=== PATIENT | male | born 1965 | race Caucasian/White ===

== ENCOUNTER 2018-03-02 08:05 | Emergency (ER) | payer BC ==
[2018-03-02 08:15] VITALS: RESP 20
[2018-03-02] MEDS ORDERED: SODIUM CHLORIDE 0.9% 1,000 ML IV STA (08:23)
[2018-03-02] MEDS ORDERED: ONDANSETRON 4 MG/2 ML VIAL IVP STA (08:23)
[2018-03-02] MEDS ORDERED: KETOROLAC 30 MG/ML 1 ML VIAL IVP STA (08:23)
--- NOTE | 2018-03-02 08:28 | ED ---
Abdominal Pain HPI - General Chief Complaint: Abdominal Pain Stated Complaint: FLANK PAIN LEFT SIDE Time Seen by Provider: 03/02/18 08:16 Source: patient, RN notes reviewed Mode of arrival: ambulatory Limitations: no limitations - History of Present Illness Initial Comments: This a 52-year-old male presents emergency Department chief complaint abdominal pain, flank pain. Patient states the pain started a couple days ago initially felt that he may be constipated but states that he's had normal bowel movements no relief of symptoms. Patient states he cannot get comfortable states pain is suprapubic, groin region and all way to his left flank. He has no history kidney stones. Patient states he started vomiting today and has current nausea. Patient denies any dysuria no hematuria. He has had prior hernia repair inguinal in umbilical. Patient reports no fever no chills no chest pain or shortness of breath. He states he feels bloated, distended at this time. - Related Data Home Medications Medication Instructions Recorded Confirmed Ketorolac [Toradol] 10 mg PO Q6HR 03/02/18 03/02/18 Propranolol HCl [Propranolol HCl 120 mg PO BID 03/02/18 03/02/18 ER] SUMAtriptan SUCCINATE [Imitrex] 100 mg PO BID PRN 03/02/18 03/02/18 glipiZIDE [Glucotrol] 5 mg PO BID 03/02/18 03/02/18 sitaGLIPtin [Januvia] 100 mg PO DAILY 03/02/18 03/02/18 Previous Rx's Medication Instructions Recorded Hydrocodone/Acetaminophen [Campbell 1 tab PO Q6HR PRN #12 tab 03/02/18 5-325] Ondansetron Odt [Zofran Odt] 4 mg PO Q8HR PRN #10 tab 03/02/18 Tamsulosin [Flomax] 0.4 mg PO DAILY #7 cap 03/02/18 Allergies Allergy/AdvReac Type Severity Reaction Status Date / Time Penicillins Allergy Dyspnea Verified 03/02/18 08:15 Review of Systems ROS Statement: Those systems with pertinent positive or pertinent negative responses have been documented in the HPI. ROS Other: All systems not noted in ROS Statement are negative. Past Medical History Past Medical History: Diabetes Mellitus, Hyperlipidemia, Hypertension History of Any Multi-Drug Resistant Organisms: None Reported Past Surgical History: Appendectomy Additional Past Surgical History / Comment(s): hernia repair Past Psychological History: Anxiety, Depression Smoking Status: Former smoker Past Alcohol Use History: None Reported Past Drug Use History: None Reported General Exam Limitations: no limitations General appearance: alert, in no apparent distress Head exam: Present: atraumatic, normocephalic, normal inspection Neck exam: Present: normal inspection, full ROM. Absent: tenderness, meningismus, lymphadenopathy Respiratory exam: Present: normal lung sounds bilaterally. Absent: respiratory distress, wheezes, rales, rhonchi, stridor Cardiovascular Exam: Present: regular rate, normal rhythm, normal heart sounds. Absent: systolic murmur, diastolic murmur, rubs, gallop, clicks GI/Abdominal exam: Present: soft, tenderness (Moderate left-sided, suprapubic tenderness), normal bowel sounds. Absent: distended, guarding, rebound, rigid Back exam: Present: CVA tenderness (L) (Mild). Absent: CVA tenderness (R) Neurological exam: Present: alert, oriented X3, CN II-XII intact Skin exam: Present: warm, dry, intact, normal color. Absent: rash Course Vital Signs 03/02/18 08:11 Temperature 98.4 F Pulse Rate 62 Respiratory 20 Rate Blood Pressure 158/88 O2 Sat by Pulse 99 Oximetry Medical Decision Making - Medical Decision Making 52-year-old male presented for left flank pain. Patient's found to have 3.9 mm UVJ stone. Patient does have mild hydronephrosis hydroureter. Patient will be given Flomax, Campbell and Zofran to be discharged with. I did advise him that he has an elevation of his kidney function that he needs to stop his Toradol at home he should increases fluid intake and follow-up with urology. Patient also advised that he had some thickening on the rectosigmoid junction. Patient is advised that needs follow-up for colonoscopy. - Lab Data Result diagrams: 03/02/18 08:38 03/02/18 08:38 Lab Results 03/02/18 03/02/18 03/02/18 Range/Units 08:38 08:38 08:38 WBC 13.3 H (3.8-10.6) k/uL RBC 4.72 (4.30-5.90) m/uL Hgb 13.6 (13.0-17.5) gm/dL Hct 40.3 (39.0-53.0) % MCV 85.4 (80.0-100.0) fL MCH 28.8 (25.0-35.0) pg MCHC 33.8 (31.0-37.0) g/dL RDW 13.2 (11.5-15.5) % Plt Count 345 (150-450) k/uL Neutrophils % 79 % Lymphocytes % 14 % Monocytes % 5 % Eosinophils % 1 % Basophils % 0 % Neutrophils # 10.5 H (1.3-7.7) k/uL Lymphocytes # 1.8 (1.0-4.8) k/uL Monocytes # 0.7 (0-1.0) k/uL Eosinophils # 0.1 (0-0.7) k/uL Basophils # 0.1 (0-0.2) k/uL PT (9.0-12.0) sec INR (<1.2) APTT (22.0-30.0) sec Sodium 142 (137-145) mmol/L Potassium 5.4 H (3.5-5.1) mmol/L Chloride 103 (98-107) mmol/L Carbon Dioxide 24 (22-30) mmol/L Anion Gap 15 mmol/L BUN 25 H (9-20) mg/dL Creatinine 1.59 H (0.66-1.25) mg/dL Est GFR (CKD-EPI)AfAm 57 (>60 ml/min/1.73 sqM) Est GFR (CKD-EPI)NonAf 49 (>60 ml/min/1.73 sqM) Glucose 247 H (74-99) mg/dL Plasma Lactic Acid Delmar 0.9 (0.7-2.0) mmol/L Calcium 10.1 (8.4-10.2) mg/dL Total Bilirubin 0.3 (0.2-1.3) mg/dL AST 19 (17-59) U/L ALT 37 (21-72) U/L Alkaline Phosphatase 75 (38-126) U/L Total Protein 7.3 (6.3-8.2) g/dL Albumin 4.5 (3.5-5.0) g/dL Amylase 52 (30-110) U/L Lipase 68 (23-300) U/L Urine Color Urine Appearance (Clear) Urine pH (5.0-8.0) Ur Specific [place] (1.001-1.035) Urine Protein (Negative) Urine Glucose (UA) (Negative) Urine Ketones (Negative) Urine Blood (Negative) Urine Nitrite (Negative) Urine Bilirubin (Negative) Urine Urobilinogen (<2.0) mg/dL Ur Leukocyte Esterase (Negative) Urine RBC (0-5) /hpf Urine WBC (0-5) /hpf Ur Squamous Epith Cells (0-4) /hpf Urine Mucus (None) /hpf 03/02/18 03/02/18 Range/Units 08:38 08:38 WBC (3.8-10.6) k/uL RBC (4.30-5.90) m/uL Hgb (13.0-17.5) gm/dL Hct (39.0-53.0) % MCV (80.0-100.0) fL MCH (25.0-35.0) pg MCHC (31.0-37.0) g/dL RDW (11.5-15.5) % Plt Count (150-450) k/uL Neutrophils % % Lymphocytes % % Monocytes % % Eosinophils % % Basophils % % Neutrophils # (1.3-7.7) k/uL Lymphocytes # (1.0-4.8) k/uL Monocytes # (0-1.0) k/uL Eosinophils # (0-0.7) k/uL Basophils # (0-0.2) k/uL PT 10.0 (9.0-12.0) sec INR 1.0 (<1.2) APTT 25.1 (22.0-30.0) sec Sodium (137-145) mmol/L Potassium (3.5-5.1) mmol/L Chloride (98-107) mmol/L Carbon Dioxide (22-30) mmol/L Anion Gap mmol/L BUN (9-20) mg/dL Creatinine (0.66-1.25) mg/dL Est GFR (CKD-EPI)AfAm (>60 ml/min/1.73 sqM) Est GFR (CKD-EPI)NonAf (>60 ml/min/1.73 sqM) Glucose (74-99) mg/dL Plasma Lactic Acid [place] (0.7-2.0) mmol/L Calcium (8.4-10.2) mg/dL Total Bilirubin (0.2-1.3) mg/dL AST (17-59) U/L ALT (21-72) U/L Alkaline Phosphatase (38-126) U/L Total Protein (6.3-8.2) g/dL Albumin (3.5-5.0) g/dL Amylase (30-110) U/L Lipase (23-300) U/L Urine Color Yellow Urine Appearance Clear (Clear) Urine pH 5.5 (5.0-8.0) Ur Specific [place] 1.018 (1.001-1.035) Urine Protein Negative (Negative) Urine Glucose (UA) Trace H (Negative) Urine Ketones Negative (Negative) Urine Blood Small H (Negative) Urine Nitrite Negative (Negative) Urine Bilirubin Negative (Negative) Urine Urobilinogen <2.0 (<2.0) mg/dL Ur Leukocyte Esterase Negative (Negative) Urine RBC 12 H (0-5) /hpf Urine WBC <1 (0-5) /hpf Ur Squamous Epith Cells <1 (0-4) /hpf Urine Mucus Rare H (None) /hpf Disposition Clinical Impression: Ureteral calculi, Acute kidney injury, Colonic thickening Disposition: HOME SELF-CARE Condition: Stable Instructions: Kidney Stones (ED) Additional Instructions: Please follow up with your PCP to referred for colonoscopy.Please return to the Emergency Department if symptoms worsen or any other concerns. Prescriptions: Hydrocodone/Acetaminophen [Campbell 5-325] 1 tab PO Q6HR PRN #12 tab PRN Reason: Pain Ondansetron Odt [Zofran Odt] 4 mg PO Q8HR PRN #10 tab PRN Reason: Nausea Tamsulosin [Flomax] 0.4 mg PO DAILY #7 cap Is patient prescribed a controlled substance at d/c from ED?: Yes When asked, does pt state using other controlled substances?: No If prescribed controlled substance>3 days was MAPS reviewed?: Prescribed <3 Days If opioid is for acute pain is fill amount 7 days or less?: Yes If Rx opioid, was Start Talking consent form obtained?: Yes Referrals: Tuyet Patten MD [Primary Care Provider] - 1-2 days Wander Gillespie MD [STAFF PHYSICIAN] - 1-2 days Time of Disposition: 10:05
[2018-03-02] MEDS ORDERED: MORPHINE SULFATE 2 MG/ML SYRINGE IVP STA (08:40)
[2018-03-02 08:52] LABS: Basophils # (A) 0.1 k/uL (0-0.2); Basophils % (A) 0 %; Eosinophils # (A) 0.1 k/uL (0-0.7); Eosinophils % (A) 1 %; HCT 40.3 % (39.0-53.0); HGB 13.6 gm/dL (13.0-17.5); Lymphocytes # (A) 1.8 k/uL (1.0-4.8); Lymphocytes % (A) 14 %; MCH 28.8 pg (25.0-35.0); MCHC 33.8 g/dL (31.0-37.0); MCV 85.4 fL (80.0-100.0); Mean Platelet Volume 6.3; Monocytes # (A) 0.7 k/uL (0-1.0); Monocytes % (A) 5 %; Neutrophils # (A) 10.5 k/uL (1.3-7.7); Neutrophils % (A) 79 %; Platelet Count 345 k/uL (150-450); RBC 4.72 m/uL (4.30-5.90); RDW 13.2 % (11.5-15.5); WBC 13.3 k/uL (3.8-10.6)
[2018-03-02 08:56] LABS: Appearance,Urine Clear (Clear); Bilirubin,Urine Negative (Negative); Blood,Urine Small (Negative); Color,Urine Yellow; Glucose,Urine (UA) Trace (Negative); Ketones,Urine Negative (Negative); Leukocyte Esterase,Urine Negative (Negative); Mucus,Urine Rare /hpf; Nitrite,Urine Negative (Negative); PH, Urine 5.5 (5.0-8.0); Protein,Urine Negative (Negative); RBC,Urine 12 /hpf (0-5); Specific Gravity,Urine 1.018 (1.001-1.035); Squamous Epithelial Cell,Urine <1 /hpf (0-4); Urobilinogen,Urine <2.0 mg/dL (<2.0); WBC,Urine <1 /hpf (0-5)
--- NOTE | 2018-03-02 08:59 | XR ---
EXAMINATION TYPE: XR KUB , 2 VIEWS DATE OF EXAM ORDERED: 03/02/2018 HISTORY: abdominal pain. COMPARISON: None. FINDINGS: There is a rounded opacity at the left lung base.. Within the abdomen, the abdominal gas pattern is within normal limits. There is no evidence of obstru ction or free air. No unusual calcifications are seen. IMPRESSION: 1. ROUNDED OPACITY AT THE LEFT LUNG BASE. A PA AND LATERAL CHEST WOULD BE SUGGESTED. 2. NO ACUTE INTRA-ABDOMINAL ABNORMALITY.
[2018-03-02 09:00] LABS: Partial Thromboplastin Time 25.1 sec (22.0-30.0)
[2018-03-02 09:04] LABS: Albumin 4.5 g/dL (3.5-5.0); Calcium 10.1 mg/dL (8.4-10.2); Potassium 5.4 mmol/L (3.5-5.1); Total Bilirubin 0.3 mg/dL (0.2-1.3); Total Protein 7.3 g/dL (6.3-8.2)
[2018-03-02] MEDS ORDERED: SODIUM CHLORIDE 0.9% 1,000 ML IV ONE (09:26)
--- NOTE | 2018-03-02 09:55 | CT ---
EXAMINATION TYPE: CT abdomen pelvis wo con DATE OF EXAM: 03/02/2018 COMPARISON: Previous study dated 08/01/2012. HISTORY: Left sided pain with hematuria CT DLP: 1158 mGycm Automated exposure control for dose reduction was used. FINDINGS: There is minimal dependent atelectasis within the lung bases. There is no pleural or perica rdial fluid. The heart is upper limits of normal in size. There is a small hiatal hernia. A small, 1 cm cyst in the caudate lobe of the liver is again identified. This is unchanged from previ ous. The spleen and gallbladder appear normal. There is a small splenule adjacent to the spleen. Both adrenal glands appear normal. The right kidney is unremarkable without evidence of hydronephrosis or nephrolithiasis. There is hydr onephrosis on the left and there is stranding adjacent to the left kidney. There is a 3.9 mm calculus in the distal left ureter adjacent to the UVJ.. The pancreas is unremarkable. There is no significant retroperitoneal, iliac or inguinal adenopathy. The bladder wall is mildly thickened. This may be due to chronic bladder outlet obstruction. There is some focal thickening at the rectosigmoid junction. There is no significant diverticular woody nge and there is no radiographic evidence of diverticulitis. The appendix is not visualized with cert ainty. Small bowel loops are normal. There is no significant free fluid and there is no evidence of free air. There is a small, indirect inguinal hernia on the left containing fat only. There is degenerative disc disease and hypertrophic spondylosis within the thoracic and lumbar spines . IMPRESSION: 1. 3.9 MM DISTAL LEFT URETERIC CALCULUS AT THE LEVEL OF THE UVJ CAUSING MILD TO MODERATE HYDRONEPHROS IS ON THE LEFT. 2. SMALL HIATAL HERNIA. 3. CYSTIC CHANGE WITHIN THE LIVER, STABLE FROM PREVIOUS. 4. MILD BLADDER WALL THICKENING MAY REFLECT CHRONIC BLADDER OUTLET OBSTRUCTION. 5. MILD DEGENERATIVE CHANGE WITHIN THE SPINE. 6. FOCAL THICKENING OF THE RECTOSIGMOID JUNCTION. DIRECT VISUALIZATION WOULD BE SUGGESTED. 7. DEGENERATIVE CHANGES WITHIN THE SPINE.
[2018-03-02 10:23] VITALS: BP 138/82; PULSE 60; TEMP 98.2
== END 2018-03-02 10:23 | disposition home or self-care (01) ==
LOC: EC 08:05
DX: N17.9 Acute kidney failure, unspecified (principal); N13.2 Hydronephrosis with renal and ureteral calculous obstruction; K63.89 Other specified diseases of intestine; E11.9 Type 2 diabetes mellitus without complications; I10 Essential (primary) hypertension; Z90.49 Acquired absence of other specified parts of digestive tract; Z98.890 Other specified postprocedural states; Z87.891 Personal history of nicotine dependence; Z79.84 Long term (current) use of oral hypoglycemic drugs; Z79.899 Other long term (current) drug therapy; Z88.0 Allergy status to penicillin
CPT/HCPCS: 36415; 80053; 82150; 83605; 83690; 85025; 85610; 85730; 81001; 74018; 74176; 99284; 96374; 96375 ×2; 96361 ×2; J2405; J1885; J2270

== ENCOUNTER → 2018-04-11 | Day surgery (SDC) | payer BC ==
[~2018-04-11] MED LIST: LACTATED RINGERS 1,000 ML IV ONE; LACTATED RINGERS 1,000 ML IV SCH; LIDOCAINE 1% 20 ML VIAL (10MG/ML) FOR IV START INTRADERMA ONE; LIDOCAINE 1% 20 ML VIAL (10MG/ML) FOR IV START INTRADERMA PRN; LIDOCAINE 1% INJ 10MG/ML (20 ML MDV) ONE; PROPOFOL 10 MG/ML 20 ML VIAL IV ONE
[2018-04-11 12:38] VITALS: RESP 16; TEMP 97.5
[2018-04-11 12:45] LABS: Glucose,Whole Blood 170 mg/dL (75-99)
--- NOTE | 2018-04-11 14:06 | P.PCN ---
Date of Procedure: 04/11/18 Procedure(s) Performed: BRIEF HISTORY: Patient is a 52-year-old pleasant male, scheduled for an elective colonoscopy as a part of screening for colorectal neoplasia. PROCEDURE PERFORMED: Colonoscopy snare polypectomy. PREOPERATIVE DIAGNOSIS: Screening for colon cancer. IV sedation per Anesthesia. PROCEDURE: After informed consent was obtained, the patient, was brought into the endoscopy unit. IV sedation was administered by Anesthesia under continuous monitoring. Digital rectal examination was normal. Initially the Olympus CF- 160 flexible video colonoscope was then inserted in the rectum, gradually advanced into the cecum without any difficulty. Careful examination was performed as the scope was gradually being withdrawn. Ileocecal valve and the appendiceal orifice were visualized and appeared normal. Prep was excellent. Mucosa of the cecum, ascending colon, transverse colon, descending colon, sigmoid colon, and rectum appeared normal. In the distal sigmoid colon there was a 5-6 mm sessile polyp removed by snare polypectomy. Retroflexion was performed in the rectum and no lesions were seen. The patient tolerated the procedure well. IMPRESSION: I to 6 mm sessile distal sigmoid colon polyp status post polypectomy Rest of the colon appeared normal RECOMMENDATIONS: Findings of this examination were discussed with the patient as well as his family. He was advised to follow with the biopsy results. If the biopsy shows an adenoma, he can have a repeat colonoscopy in 5 years..
[2018-04-11 14:30] VITALS: BP 158/99; PULSE 63
== END ==
LOC: ORWHC2ENDO 11:26
PROVIDERS: ATTEND Internal Medicine Gastroenterology
DX: Z12.11 Encounter for screening for malignant neoplasm of colon (principal); K63.5 Polyp of colon; I10 Essential (primary) hypertension; E78.5 Hyperlipidemia, unspecified; G43.909 Migraine, unspecified, not intractable, without status migrainosus; E11.9 Type 2 diabetes mellitus without complications; Z79.84 Long term (current) use of oral hypoglycemic drugs; Z79.891 Long term (current) use of opiate analgesic; Z79.899 Other long term (current) drug therapy; Z88.0 Allergy status to penicillin; Z87.891 Personal history of nicotine dependence
CPT/HCPCS: 88305; 45380; J2001; J2704

== ENCOUNTER → 2018-05-08 | Day surgery (SDC) | payer BC ==
[2018-05-02 15:36] VITALS: BMI 30.3
[~2018-05-08] MED LIST changes: +ATROPINE SULFATE 0.1 MG/ML 10ML SYRINGE ONE; +BUPIVACAIN-EPI 0.5%-1:200,000 30 ML VIAL SQ ONE; +CLINDAMYCIN 600 MG in DEXTROSE 5% IN WATER 50 ML IVPB ONE; +DEXAMETHASONE SOD PHOS (MDV) 100 MG/10 ML VIAL ONE; +DEXAMETHASONE SOD PHOSPHATE 10 MG/ML 1 ML VIAL IV ONE; +ENALAPRILAT 1.25 MG/ML 1 ML VIAL IVP ONE; +EPINEPHrine 1 MG/ML (MDV) 30 ML VIAL IRRIGATION ONE; +FAMOTIDINE 20 MG/2 ML VIAL IVP ONE; +FLUORESCEIN STRIPS 1 MG STRIP MISCELLANE ONE; +HYDROcodone/APAP 5-325MG 1 EACH TAB PO ONE; -LIDOCAINE 1% 20 ML VIAL (10MG/ML) FOR IV START INTRADERMA ONE; -LIDOCAINE 1% 20 ML VIAL (10MG/ML) FOR IV START INTRADERMA PRN; +LIDOCAINE 1%-EPI 1:100,000 20 ML VIAL SQ ONE; +MELOXICAM 7.5 MG TAB PO ONE; +MIDAZOLAM 2 MG/2 ML VIAL IV PRN; +MIDAZOLAM 2 MG/2 ML VIAL ONE; +ONDANSETRON 4 MG/2 ML VIAL IVP ONE; +OXYMETAZOLINE 0.05% NASL SPRAY 1 SPRAY BOTTLE NASAL ONE; +SCOPOLAMINE 1.5MG/72HR PATCH TRANSDERM ONE; +SUCCINYLCHOLINE CHLORIDE 100 MG/5 ML SYR IV ONE; +amLODIPine 10 MG TAB PO STA; +ePHEDrine SULFATE/0.9% NACL/PF 50 MG/5 ML SYRINGE IV ONE; +fentaNYL (PF) 50 MCG/ML 2 ML AMP ONE
[2018-05-08 08:17] VITALS: RESP 16
[2018-05-08] MEDS: OXYMETAZOLINE 0.05% NASL SPRAY 1 SPRAY BOTTLE EA NOSTRIL SCH ×3 (08:29→08:40)
[2018-05-08 08:33] LABS: Glucose,Whole Blood 162 mg/dL (75-99)
[2018-05-08] MEDS: HYDROmorphone 1 MG/ML 1 ML SYRINGE IVP ONE ×2 (11:10→11:15)
[2018-05-08 11:14] VITALS: TEMP 97
[2018-05-08] MEDS: fentaNYL (PF) 50 MCG/ML 2 ML AMP IV PRN ×4 (11:25→12:01)
--- NOTE | 2018-05-08 11:31 | P.OP ---
Date of Procedure: 05/08/18 Preoperative Diagnosis: Chronic Pansinusitis with polyposis Hypertrophy of bilateral inferior turbinates Postoperative Diagnosis: Same Procedure(s) Performed: Bilateral functional endoscopic sinus surgery with polypectomy Bilateral submucosal resection of inferior turbinates with compression. Anesthesia: GETA Surgeon: Rubio Jackson Estimated Blood Loss (ml): 30 Pathology: other (sinonasal) Condition: stable Disposition: PACU Indications for Procedure: This patient presented with total nasal obstruction, anosmia this patient presented with total anosmia, total nasal obstruction, headaches facial pain discolored drainage. Has failed medical therapy. Examination reveals chronic pansinusitis with sinonasal polyposis and large obstructive inferior turbinates. Operative Findings: Massive sinonasal polyposis with large obstructive inferior turbinates. Widespread purulence was noted. Description of Procedure: This patient was taken to the operative room and placed in the supine position. A general inhalation anesthetic was administered to the patient by the department of anesthesia with a functioning IV line in place. The patient was monitored throughout the entire case by the department of anesthesia. The eyes were taped shut for protection. The patient was placed in a slight reverse Trendelenburg position. The patient had previously utilize Afrin nasal spray preoperatively. The nose was evaluated and the septum lateral nasal wall and inferior turbinates were injected with lidocaine 1% with epinephrine 1 100,000 bilaterally. Approximately 10 minutes were allowed wait for full vasoconstrictive effects to take place. We then entered the nose with a 0 and 30 Larios charu endoscope. Previous to this we did inject the lateral nasal wall and middle turbinate and uncinate process with lidocaine 1% with epinephrine 1 100,000. Approximately 10 minutes were allowed wait for full vasoconstrictive effects to take place. Intranasal polyps were noted. They were noted bilaterally. The intranasal polyps were removed with use of a microdebrider. With use of a microdebrider and a pediatric backbiter, we took down the uncinate process bilaterally. We then opened the maxillary sinuses bilaterally. We utilized a microdebrider for this and entered the maxillary sinuses and removed diseased tissue and polypoid tissue. This was done bilaterally. After the maxillary sinuses were opened and the diseased tissue and polyps were removed we entered the ethmoid bulla and with use of a microdebrider and up-biting Ciara, we remove the anterior septations and remove diseased tissue from the anterior ethmoids with direct visualization. We then followed the fovea frontalis through the basal lamella and into the posterior ethmoid air cells and did a total ethmoidectomy with removal of polypoid material. Once the ethmoids cells were all taken down we then entered the sphenoid sinus medially and inferiorly underneath the inferior attachment of the superior turbinate. The sphenoid sinus was opened entered and diseased tissue and polyps were removed bilaterally. This was done with a microdebrider and [place]akesley. We then entered the frontal sinuses with a giraffe and up-biting Blakesley entered on the agar nasi cells. We open the frontal sinuses and removed sinus tissue and polypoid tissue that was diseased. With the entellus balloon we entered the frontal sinus and inflated and irrigated both frontal sinuses. We explored the frontal sinuses bilaterally. To summarize all sinuses were open all sinuses were explored and we remove diseased tissue and polyps from the sphenoid maxillary and frontal sinuses. Polyps were removed from the nose. Ethmoid sinuses were opened totally. xerogel was inserted and minimal bleeding was encountered. We reinspected the skull base there is no signs of any orbital penetration or signs of any intracranial penetration. Propel and contour was placed bilaterally. The sugical site was reinspected after the nasal pore was placed and no bleeding was seen. Attention was then paid to the inferior turbinates. The bilateral inferior turbinates were hypertrophic and obstructive. We entered the anterior portion of the inferior turbinates with use of a microdebrider. We remove bone and submucosal elements with use of a microdebrider bilaterally. The inferior turbinates underwent a submucosal resection with removal of submucosal tissue and bone. We obtained a much better and normal in size for breathing. The inferior turbinates were then outfractured and compressed with a Utanes nasal elevator. Excellent airway was obtained and was symmetric bilaterally. No bleeding was encountered. Intranasal splints were inserted and fixated at the end of the case. We utilized Taylor nasal splints. There will be removed and the patient returns to the office.
[2018-05-08 12:23] LABS: Glucose,Whole Blood 260 mg/dL (75-99)
[2018-05-08 14:43] VITALS: BP 139/82; PULSE 64
== END | disposition home or self-care (01) ==
LOC: OR 07:46
PROVIDERS: ATTEND Otolaryngology
DX: J32.4 Chronic pansinusitis (principal); J33.9 Nasal polyp, unspecified; F32.9 Major depressive disorder, single episode, unspecified; E11.9 Type 2 diabetes mellitus without complications; Z79.84 Long term (current) use of oral hypoglycemic drugs; Z79.82 Long term (current) use of aspirin; Z79.1 Long term (current) use of non-steroidal anti-inflammatories (NSAID); Z79.899 Other long term (current) drug therapy; Z88.0 Allergy status to penicillin; Z88.8 Allergy status to other drugs, medicaments and biological substances; Z91.09 Other allergy status, other than to drugs and biological substances
CPT/HCPCS: 88305; 31267; 31253; 31259; C2625 ×2; C1726; J0171; J2250; J1100 ×2; J2405; J2001; J0461; J3010; J1170; J0330; J2704

== ENCOUNTER → 2018-10-08 | Outpatient (CLI) | payer BC | END | disposition home or self-care (01) | LOC: LABWHC1 16:54 | PROVIDERS: ATTEND Otolaryngology | DX: J30.89 Other allergic rhinitis (principal) | CPT/HCPCS: 36415 ==